=== PATIENT | female | born 1955 | race African-American/Black ===

== ENCOUNTER 2016-10-15 12:09 | Outpatient (CLI) | payer MEDICARE, OTHER, MEDICAID ==
[2016-10-15] VITALS (9 sets, daily range): BP systolic 143–177; BP diastolic 60–95; PULSE 60–77; TEMP 98.5
[~2016-10-15] VITALS: Ht 160 cm; Wt 80.2 kg
[~2016-10-15 12:09] MED LIST: ACTOS 15MG TAB15 MG PO; ACTOS15 MG PO; ADALAT CC30 MG PO; ADALAT CC60 MG PO; ALDACTONE 25MG25 M1 PO; AMBIEN 5MG TABLE5 MG PO; AMOXICILLIN/CLA1 TA1 PO; ASPIRIN 81M81 MG/TA2 PO; ASPIRIN E.C. 8181 MG PO; ATENOLOL25 MG PO; CALCIUM CARBONATE PO; CATAPRES 0.1MG0.1 MG PO; CEPHALEXIN250 M1; CORDARONE200 MG/TAB PO; DIOVAN 80MG80 MG PO; DIOVAN320 MG PO; EMLA CREAM; FERROUS SU325 MG/TAB PO; HYDROCORT CREAM1% TOP; ISMO 20MG20 MG; ISMO 20MG20 MG PO; LEVAQUIN 5500 MG/TA1; LOPRESSOR 550 MG/TAB PO; MEGACE40 MG PO; METOPROLOL SUCC50 MG PO; MICARDIS40 MG PO; NEPHROCAP PO; NEURONTIN100 MG/CAP PO; NORVASC 10MG10 MG PO; NORVASC 5MG5 MG/TAB PO; OMNICEF 300MG300 MG PO; PEPCID 20MG TAB20 MG PO; PEPCID AC20 MG PO; PERCOCET 325 MG1 TA2 PO; PERI-COLACE 301 SGL PO; PHOS LO PO; PHOSLO667 M1 PO; PHOSLO667 MG PO; PROAIR HFA0.09 MG/AC IH; RENAL MULTIVITA1 TAB PO; RENVELA800 MG PO; RT ADVAIR HFA 1112 G IH; SENSIPAR30 MG PO; SODIUM BICARB PO; SPIRIVA RE2.5 MCG/Ac IH; TENORMIN25 MG PO; TESSALON PERLE200 MG PO; TOPROL XL 25MG25 MG PO; TOPROL XL 50MG50 MG PO; TOPROL XL100 MG PO; TRIPHROCAPS SOFT1 MG PO; TRIPHROCAPS1 SGL PO; VITAMIN D NATU400 IU PO; VITAMIN D PO
[2016-10-15] MEDS ORDERED: TYLENOL W/COD1 UDTAB PO (14:20)
== END 2016-10-15 18:06 | disposition home or self-care (01) ==
LOC: COL.CAR 12:09
DX: T82.9XXA Unspecified complication of cardiac and vascular prosthetic device, implant and graft, initial encounter (principal); N18.6 End stage renal disease; Z99.2 Dependence on renal dialysis
CPT/HCPCS: J2250; J3010; J7120; Q9967

== ENCOUNTER → 2017-08-18 | Outpatient (CLI) | payer MEDICARE, OTHER, MEDICAID ==
[~2017-08-18] VITALS: Ht 157.6 cm; Wt 95.0 kg
[~2017-08-18] MED LIST changes: +RT SPIRIVA18 MCG IH; +TYLENOL W/COD1 UDTAB PO
[2017-08-18 12:52] VITALS: BP 114/70; PULSE 61; TEMP 98
[2017-08-18 14:15] VITALS: BP 134/70; PULSE 71
[2017-08-18 14:50] VITALS: BP 138/73; PULSE 60
[2017-08-18 15:05] VITALS: BP 129/71; PULSE 60
[2017-08-18 15:21] VITALS: BP 136/74; PULSE 62
[2017-08-18 15:47] VITALS: BP 133/77; PULSE 62
== END ==
LOC: COL.CAR 11:45
DX: T82.838A Hemorrhage due to vascular prosthetic devices, implants and grafts, initial encounter (principal); E11.22 Type 2 diabetes mellitus with diabetic chronic kidney disease; N18.6 End stage renal disease; I25.10 Atherosclerotic heart disease of native coronary artery without angina pectoris
CPT/HCPCS: J2250; J3010; Q9967

== ENCOUNTER 2018-01-12 08:44 | Outpatient (CLI) | payer MEDICARE, OTHER ==
[~2018-01-12] VITALS: Ht 157.8 cm; Wt 98.3 kg
[2018-01-12 09:17] VITALS: BP 115/64; PULSE 61; TEMP 97.9
[2018-01-12 10:37] VITALS: BP 118/64; PULSE 59
== END 2018-01-12 12:57 | disposition home or self-care (01) ==
LOC: COL.CAR 08:44
DX: Z45.2 Encounter for adjustment and management of vascular access device (principal); I12.0 Hypertensive chronic kidney disease with stage 5 chronic kidney disease or end stage renal disease; N18.6 End stage renal disease; J30.89 Other allergic rhinitis
CPT/HCPCS: J1644; J2250; J3010; Q9967

== ENCOUNTER → 2019-01-18 | Outpatient (CLI) | payer MEDICARE, OTHER, MEDICAID | LOC: COL.RAD 10:08 | DX: N26.1 Atrophy of kidney (terminal) (principal); N28.1 Cyst of kidney, acquired; N28.89 Other specified disorders of kidney and ureter ==

== ENCOUNTER → 2019-02-03 | Outpatient (CLI) | payer MEDICARE, OTHER | LOC: COL.RAD 10:08 | DX: N28.89 Other specified disorders of kidney and ureter (principal); R93.422 Abnormal radiologic findings on diagnostic imaging of left kidney; R93.421 Abnormal radiologic findings on diagnostic imaging of right kidney; N26.1 Atrophy of kidney (terminal); R91.1 Solitary pulmonary nodule; Z99.2 Dependence on renal dialysis; Q61.3 Polycystic kidney, unspecified; D73.4 Cyst of spleen | CPT/HCPCS: Q9967 ==

== ENCOUNTER 2021-05-19 12:06 | Emergency (ER) | payer MEDICARE, OTHER ==
[~2021-05-19] VITALS: Ht 157.5 cm; Wt 87.6 kg
[2021-05-19 12:25] VITALS: TEMP 99.1
[2021-05-19 13:21] LABS: BASO % 0.2 % (0.0-2.0); EOS # 0.1 K/mm3 (0.0-0.7); EOS % 1.8 % (0.0-4.0); GRAN # 4.4 K/mm3 (1.4-6.5); GRAN % 78.3 % (42.2-75.2); LYMPH # 0.7 K/mm3 (1.2-3.4); LYMPH % 11.8 % (20.0-51.0); MEAN CELL VOLUME 92 fl (80.0-100.0); MEAN CORPUSCULAR HEMOGLOBIN 31 pg (27-31); MEAN CORPUSCULAR HGB CONC 34 g/dl (33.0-37.0); MEAN PLATELET VOLUME 9.7 fl (7.4-10.4); MONO # 0.4 K/mm3 (0.1-0.6); MONO % 7.5 % (1.7-9.3); PLATELET COUNT 133 K/mm3 (130-400); RED BLOOD COUNT 3.19 M/mm3 (4.10-5.30); REDCELL DISTRIBUTION WIDTH-CV 13.5 % (11.5-14.5)
[2021-05-19 13:23] LABS: HEMATOCRIT 29.2 % (37.0-47.0)
[2021-05-19 13:46] LABS: ALBUMIN 3.8 gm/dL (3.4-4.8); BILIRUBIN,TOTAL 2.1 mg/dL (0.2-1.2); CALCIUM 9.9 mg/dL (8.4-10.2); CREATININE, serum 13.3 mg/dL (0.57-1.11); POTASSIUM 4.3 mmol/L (3.5-4.5); TOTAL PROTEIN 7.6 gm/dL (6.2-8.1)
[2021-05-19 13:59] LABS: TROPONIN-I 0.064 ng/mL (0.00-0.033)
[2021-05-19 15:00] VITALS: BP 165/100; PULSE 72
== END 2021-05-19 15:00 | disposition home or self-care (01) ==
LOC: COL.ER 12:06
PROVIDERS: Physician Assistant
DX: J44.9 Chronic obstructive pulmonary disease, unspecified (principal); I12.0 Hypertensive chronic kidney disease with stage 5 chronic kidney disease or end stage renal disease; N18.6 End stage renal disease; Z99.2 Dependence on renal dialysis; Z20.822 Contact with and (suspected) exposure to COVID-19; Z95.0 Presence of cardiac pacemaker; Z79.899 Other long term (current) drug therapy; Z79.82 Long term (current) use of aspirin; Z79.51 Long term (current) use of inhaled steroids

== ENCOUNTER 2021-07-25 08:14 | Outpatient (CLI) | payer MEDICARE, OTHER ==
[2021-07-25] VITALS (8 sets, daily range): BP systolic 135–152; BP diastolic 69–78; PULSE 60–88; TEMP 97.8
[~2021-07-25] VITALS: Ht 157.5 cm; Wt 84.0 kg
--- NOTE | 2021-07-25 09:04 | NUR ---
SEE MERGE FOR ALL MEDICATION ADMINISTRATION TIMES/DOSAGES AND INTRA/POST PROCEDURE SEDATION ASSESSMENTS. PRE PROCEDURE ASSESSMENT COMPLETED IN [facility].
[2021-07-25] MEDS ORDERED: ELIQUIS 2.5 PO (09:16)
[2021-07-25] MEDS ORDERED: NATURE'S BLEND100 M2 PO (09:17)
[2021-07-25] MEDS ORDERED: B-12 500 MCG PO (09:17)
[2021-07-25] MEDS ORDERED: VITAMIN D31000 I1 PO (09:18)
[2021-07-25] MEDS ORDERED: FOLIC ACID0.8 MG PO (09:18)
--- NOTE | 2021-07-25 10:15 | NUR ---
Pt is back from laboratory associate. report received from Ilana GRANT. Pt is awake and alert, pwd, resp reg and unlabored. 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 cms unchanged to rt hand. Lunch ordered, call light in reach, daughter Ronda at [facility].
--- NOTE | 2021-07-25 12:30 | NUR ---
Pt is up and ambulatory in room with steady gait. Puncture site to fistula in rt forearm remains soft without evidence of bleeding. I discussed rx/dc and fu instructions with patient and she verbalized understanding. IV is dc'd with cath intact, dressing applied. Pt escorted to exit via wheelchair.
== END 2021-07-25 12:45 | disposition home or self-care (01) ==
LOC: COL.CAR 08:14
DX: T82.898A Other specified complication of vascular prosthetic devices, implants and grafts, initial encounter (principal); I13.11 Hypertensive heart and chronic kidney disease without heart failure, with stage 5 chronic kidney disease, or end stage renal disease; N18.6 End stage renal disease; Z99.2 Dependence on renal dialysis; Z87.891 Personal history of nicotine dependence
CPT/HCPCS: C1887; J1644; J2250; J3010; J7050; Q9967

== ENCOUNTER → 2022-01-30 | Outpatient (CLI) | payer MEDICARE, OTHER ==
[~2022-01-30] MED LIST changes: +B-12 500 MCG PO; +ELIQUIS 2.5 PO; +FOLIC ACID0.8 MG PO; +NATURE'S BLEND100 M2 PO; +VITAMIN D31000 I1 PO
== END ==
LOC: COL.RAD 12:45
DX: Q61.2 Polycystic kidney, adult type (principal)